=== PATIENT | female | born 1930 | race Caucasian/White ===

== ENCOUNTER 2017-07-29 14:48 | Emergency (ER) | payer OTHER ==
[~2017-07-29] VITALS: Ht 162.6 cm; Wt 76.4 kg
[~2017-07-29 14:48] MED LIST: LISINOPRIL5 MG PO; PAROXETINE HCL20 MG PO; PAXIL20 MG PO; PRINIVIL5 MG PO; RISPERDAL0.5 MG PO; SIMVASTATIN20 MG PO; ZOCOR20 MG PO
[2017-07-29 19:44] VITALS: BP 134/57
== END 2017-07-29 19:46 ==
LOC: EME → EDBD 14:48 → EME 19:46
PROC: 3E0234Z Introduction of Serum, Toxoid and Vaccine into Muscle, Percutaneous Approach (ICD-10-PCS; principal; 2017-07-29)
DX: S01.01XA Laceration without foreign body of scalp, initial encounter (principal); F03.90 Unspecified dementia, unspecified severity, without behavioral disturbance, psychotic disturbance, mood disturbance, and anxiety; W18.30XA Fall on same level, unspecified, initial encounter; Y92.129 Unspecified place in nursing home as the place of occurrence of the external cause; Z23 Encounter for immunization; I10 Essential (primary) hypertension; E78.5 Hyperlipidemia, unspecified; R73.03 Prediabetes; F41.9 Anxiety disorder, unspecified; F32.9 Major depressive disorder, single episode, unspecified; Z96.642 Presence of left artificial hip joint
CPT/HCPCS: 70450; 72125; 99281; 99285